=== PATIENT | male | born 1960 | race Caucasian/White ===

== ENCOUNTER 2018-06-02 12:18 | Day surgery (SDC) | payer MEDICARE, MEDICAID ==
[~2018-06-02] VITALS: Ht 172.7 cm; Wt 62.3 kg
[~2018-06-02 12:18] MED LIST: FURO-150 PO; POTA8TAB8 PO; RIFA550T PO; TRAZ-218 PO; ZINC10LO5
[2018-06-02 12:30] VITALS: BP 131/74
[2018-06-02] MEDS ORDERED: MULT1TAB74 PO (12:47)
[2018-06-02] MEDS ORDERED: CYCL-1 PO (12:47)
[2018-06-02] MEDS ORDERED: fentaNYL/PF 50MCG/1 ML 2ML syringe ONE (13:06)
[2018-06-02] MEDS ORDERED: LIDOcaine Viscous 15ml cup ONE (13:06)
[2018-06-02] MEDS ORDERED: MIDAZolam 5mg/5ml vial ONE (13:06)
[2018-06-02 13:37] VITALS: BP 90/55
[2018-06-02 13:47] VITALS: BP 93/56
[2018-06-02 13:57] VITALS: BP 99/66
[2018-06-02 14:07] VITALS: BP 97/59
== END 2018-06-02 14:15 | disposition home or self-care (01) ==
LOC: GI LAB 12:18
PROVIDERS: ATTEND Internal Medicine Gastroenterology
DX: I85.00 Esophageal varices without bleeding (principal); K76.6 Portal hypertension; K31.89 Other diseases of stomach and duodenum; Z79.899 Other long term (current) drug therapy; Z98.890 Other specified postprocedural states
CPT/HCPCS: 43235; G0500; J2250; J3010; J7030; 99152; A4620